=== PATIENT | female | born 1990 | race Caucasian/White ===

== ENCOUNTER 2019-06-29 08:39 | Emergency (ER) | payer OTHER ==
[~2019-06-29 08:39] MED LIST: ? ANTIDEPRESSANT; ALBU90OI INH; ALPR.25 PO; AMOX500 PO; APRI PO; Antivert25 MG PO; BCP'S; BENZ100A PO; Bactrim Ds Tab1 EACH PO; CITA20 PO; Cleocin HCl300 MG PO; Crutch1 EACH MISC; FURO20 PO; HYDACE5 PO; HYOS.125 SL; IBUP400 PO; IBUP800 PO; KETO10 PO; Keflex500 MG PO; METO100 PO; MULVITMIND PO; Naprosyn500 MG PO; Norco 5-325 Ta1 EACH PO; ONDA4ODT MM; OXYACE5T PO; PROM25 PO; RXHYD5325 PO; RXHYOS.125 PO; RXTRAM50 PO; SERT100 PO; TRAM50 PO; VENL150ER; VENLAFAXINE HCL75 MG PO; Veetids 500500 MG PO; [UNRECOGNIZED DRUG - OTHER]
== END 2019-06-29 09:57 | disposition left against medical advice (07) ==
LOC: ER 08:39
DX: Z53.21 Procedure and treatment not carried out due to patient leaving prior to being seen by health care provider (principal)

== ENCOUNTER → 2019-08-04 | Outpatient (CLI) | payer OTHER ==
[2019-08-07 03:07] LABS: CHLAMYDIA TRACHOMATIS, NAA Negative (Negative); NEISSERIA GONORRHOEAE, NAA Negative (Negative)
== END ==
LOC: LAB SHORT 15:45 → LAB 15:45
PROVIDERS: Registered Nurse Community Health
DX: Z11.3 Encounter for screening for infections with a predominantly sexual mode of transmission (principal); Z20.2 Contact with and (suspected) exposure to infections with a predominantly sexual mode of transmission; Z72.51 High risk heterosexual behavior
CPT/HCPCS: 87491; 87591

== ENCOUNTER → 2019-09-17 | Outpatient (CLI) | payer OTHER ==
[2019-09-18 12:02] LABS: G. vaginalis (DNA Probe) Positive (NEGATIVE); T. vaginalis (DNA Probe) Negative (NEGATIVE)
[2019-09-18 12:03] LABS: Candida species (DNA Probe) Negative (NEGATIVE)
[2019-09-20 07:07] LABS: CHLAMYDIA TRACHOMATIS, NAA Negative (Negative); NEISSERIA GONORRHOEAE, NAA Negative (Negative)
== END ==
LOC: LAB SHORT 15:01 → LAB UCHC 15:01
PROVIDERS: Registered Nurse Community Health
DX: N89.8 Other specified noninflammatory disorders of vagina (principal)
CPT/HCPCS: 87480; 87491; 87510; 87591; 87660

== ENCOUNTER 2020-11-25 20:22 | Emergency (ER) | payer OTHER ==
[~2020-11-25] VITALS: Ht 154.9 cm; Wt 89.8 kg
[2020-11-25] MEDS ORDERED: AZIT500 PO (22:28)
== END 2020-11-25 22:36 | disposition home or self-care (01) ==
LOC: ER 20:22
DX: K08.89 Other specified disorders of teeth and supporting structures (principal); F17.210 Nicotine dependence, cigarettes, uncomplicated; Z79.899 Other long term (current) drug therapy
CPT/HCPCS: 99283; A9270

== ENCOUNTER 2021-03-17 10:16 | Emergency (ER) | payer OTHER ==
[~2021-03-17] VITALS: Ht 154.9 cm; Wt 88.5 kg
[~2021-03-17 10:16] MED LIST changes: +AZIT500 PO
[2021-03-17] MEDS ORDERED: AMOCLA875 PO (10:38)
== END 2021-03-17 10:47 | disposition home or self-care (01) ==
LOC: ER 10:16
DX: S01.21XA Laceration without foreign body of nose, initial encounter (principal); F17.210 Nicotine dependence, cigarettes, uncomplicated; Z23 Encounter for immunization; Z79.899 Other long term (current) drug therapy; W27.2XXA Contact with scissors, initial encounter
CPT/HCPCS: 90471; 90714; 99283-25

== ENCOUNTER → 2023-12-31 | Outpatient (CLI) | payer OTHER ==
[~2023-12-31] MED LIST changes: +AMOCLA875 PO
[2024-01-01 12:01] LABS: Candida Group, PCR NOT DETECTED (NOT DETECT); Candida glabrata-krusei, PCR NOT DETECTED (NOT DETECT)
[2024-01-01 12:05] LABS: Bacterial Vaginosis PCR Positive (NEGATIVE)
[2024-01-03 13:35] LABS: APTIMA MEDIA TYPE Unisex Swab; C. TRACHOMATIS BY TMA Negative (Negative); N. GONORRHOEAE BY TMA Negative (Negative); SPECIMEN SOURCE Not Provided
[2024-01-07 15:53] LABS: HPV HIGH RISK BY TMA Detected; HPV SOURCE Cervical
[2024-01-08 21:04] LABS: HPV GENOTYPE 16 BY TMA Not Detected; HPV GENOTYPE 18/45 BY TMA Detected; HPVG SOURCE Cervical
== END | disposition home or self-care (01) ==
LOC: LAB 18:48 → LAB SHORT 18:48
DX: Z01.419 Encounter for gynecological examination (general) (routine) without abnormal findings (principal)
CPT/HCPCS: 87481; 87491; 87591; 87624; 87625; 87661; 87801; G0123

== ENCOUNTER → 2024-03-18 | Outpatient (CLI) | payer OTHER | LOC: LAB 14:50 → LAB SHORT 14:50 | DX: J02.9 Acute pharyngitis, unspecified (principal) | CPT/HCPCS: 87081 ==

== ENCOUNTER → 2024-04-06 | Outpatient (CLI) | payer OTHER ==
[2024-04-06 18:17] LABS: Bacterial Vaginosis PCR Negative (NEGATIVE); Candida Group, PCR DETECTED (NOT DETECT); Candida glabrata-krusei, PCR NOT DETECTED (NOT DETECT)
== END | disposition home or self-care (01) ==
LOC: LAB 14:20 → LAB SHORT 14:20
DX: B37.31 Acute candidiasis of vulva and vagina (principal)
CPT/HCPCS: 87481; 87661; 87801

== ENCOUNTER 2024-05-04 17:56 | Emergency (ER) | payer OTHER ==
[~2024-05-04] VITALS: Ht 154.9 cm; Wt 83.9 kg
[2024-05-04 18:19] VITALS: BP 204/78
[2024-05-04] MEDS ORDERED: CefTRIAXone 500 MG Vial IM ONE (19:30)
[2024-05-04] MEDS ORDERED: MetroNIDAZOLE 500 MG Tab PO ONE (19:30)
[2024-05-04] MEDS ORDERED: Azithromycin 250 MG Tab PO ONE (19:30)
[2024-05-04 20:42] LABS: Bacterial Vaginosis PCR Negative (NEGATIVE); Candida Group, PCR NOT DETECTED (NOT DETECT); Candida glabrata-krusei, PCR NOT DETECTED (NOT DETECT)
[2024-05-07 20:21] LABS: APTIMA MEDIA TYPE MultiTest Swab; C. TRACHOMATIS BY TMA Negative (Negative); N. GONORRHOEAE BY TMA Negative (Negative); SPECIMEN SOURCE Vaginal
== END 2024-05-04 19:58 | disposition home or self-care (01) ==
LOC: ER 17:56
PROVIDERS: Physician Assistant
DX: F41.9 Anxiety disorder, unspecified (principal); N89.8 Other specified noninflammatory disorders of vagina; R10.30 Lower abdominal pain, unspecified; Z72.51 High risk heterosexual behavior; F32.A Depression, unspecified; F17.210 Nicotine dependence, cigarettes, uncomplicated; Z79.899 Other long term (current) drug therapy
CPT/HCPCS: 87481; 87491; 87591; 87661; 87801; 96372; 99283-25; A9270; J0696

== ENCOUNTER → 2024-09-18 | Outpatient (CLI) | payer OTHER | LOC: LAB 13:41 → LAB SHORT 13:41 | DX: J02.9 Acute pharyngitis, unspecified (principal) | CPT/HCPCS: 87077; 87081; 87185 ==

== ENCOUNTER 2024-09-19 12:51 | Emergency (ER) | payer OTHER ==
[~2024-09-19] VITALS: Ht 167.6 cm; Wt 68.0 kg
[2024-09-19 14:10] VITALS: BP 124/79
== END 2024-09-19 14:39 | disposition home or self-care (01) ==
LOC: ER 12:51
DX: M54.2 Cervicalgia (principal); J30.9 Allergic rhinitis, unspecified; F17.210 Nicotine dependence, cigarettes, uncomplicated; Z79.899 Other long term (current) drug therapy
CPT/HCPCS: 99282

== ENCOUNTER → 2025-02-12 | Outpatient (CLI) | payer OTHER ==
[2025-02-13 07:54] LABS: Bacterial Vaginosis PCR Negative (NEGATIVE); Candida Group, PCR NOT DETECTED (NOT DETECT); Candida glabrata-krusei, PCR NOT DETECTED (NOT DETECT)
[2025-02-21 17:19] LABS: HPV GENOTYPE 16 BY TMA Not Detected; HPV GENOTYPE 18/45 BY TMA Not Detected; HPV HIGH RISK BY TMA Detected; HPV SOURCE Cervical; HPVG SOURCE Cervical
== END ==
LOC: LAB SHORT 19:14 → LAB 19:14
PROVIDERS: Advanced Practice Midwife
DX: Z01.419 Encounter for gynecological examination (general) (routine) without abnormal findings (principal); N76.0 Acute vaginitis
CPT/HCPCS: 81515; 87624; 87625; G0123